=== PATIENT | male | born 1985 | race Hispanic/Latino ===

== ENCOUNTER 2019-01-07 23:31 | Emergency (ER) | payer SELFPAY ==
[2019-01-08] MEDS ORDERED: CEFAZOLIN SODIUM 1 GM/VIAL ONE (00:23)
[2019-01-08] MEDS ORDERED: NA CHLORIDE 0.9% 50 ML IV ONE (00:23)
[2019-01-08] MEDS ORDERED: TETANUS & DIPHTHERIA TOX,ADULT 0.5 ML VIAL ONE (00:23)
[2019-01-08] MEDS ORDERED: NA CHLORIDE 0.9% 1,000 ML ONE (00:23)
[2019-01-08] MEDS ORDERED: THIAMINE 200 MG/2 ML INJ ONE (00:23)
[2019-01-08 01:21] LABS: Absolute Lymphocytes (CBC) 2.5 K/uL (0.7-4.9); Basophils % 0.6 % (0-1.3); Eosinophils % 2.6 % (0-4.4); Hematocrit 41.8 % (39.6-49.0); MPV 9.9 fL (7.6-11.3); Monocytes % 6.7 % (3.3-12.3); RBC Red Blood Cell Count 4.41 M/uL (4.33-5.43)
[2019-01-08 01:28] LABS: ALT/SGPT 46 U/L (12-78); AST/SGOT 53 U/L (15-37); Albumin 3.8 g/dL (3.4-5.0); Alkaline Phosphatase 63 U/L (45-117); BUN Blood Urea Nitrogen 15 mg/dL (7-18); Bicarbonate 26 mmol/L (21-32); Bilirubin Direct < 0.1 mg/dL (0-0.2); Bilirubin Total 0.3 mg/dL (0.2-1.0); Glucose Level 91 mg/dL (74-106); Lipase 118 U/L (73-393); Potassium 3.8 mmol/L (3.5-5.1); Protein, Total 7.6 g/dL (6.4-8.2); Sodium Level 141 mmol/L (136-145)
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
--- NOTE | 2019-01-08 10:16 | RAD REPORT ---
EXAM DESCRIPTION: CT - Head C Spine Jermain Azul - 01/08/2019 1:37 am CLINICAL HISTORY: 33 years Male, Facial pain;Deformity COMPARISON: None. TECHNIQUE: Multiple, helical axial tomographic images were obtained of the head, cervical spine and facial bones without intravenous contrast. Subsequent axial images were obtained of the chest, abdome n, and pelvis following administration of intravenous contrast. Coronal and sagittal reformatted imag es were obtained. This exam was performed according to our departmental dose-optimization program, wh ich includes automated exposure control, adjustment of the mA and/or kV according to patient size and /or use of iterative reconstruction technique. FINDINGS: CT head: There are two adjacent small areas of mild increased density in the left thalamus and posterior limb of the left internal capsule which could be related to developmental venous anomaly, less likely acut e hemorrhage. There is a small amount of fat along the dorsal aspect of the body and splenium of the corpus callosum. 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 No mass. No midline shift. No ventriculomegaly. Marquez-whi te matter differentiation is maintained. Osseous structures are unremarkable. Small frontal scalp hematoma is present. CT cervical spine: No evidence for an acute fracture of the cervical spine. No subluxation. Nonspecific straightening of normal cervical lordosis is demonstrated. Vertebral body heights and disc spaces are maintained. Lizeth tral canal is grossly patent. Surrounding soft tissues are unremarkable. CT maxillofacial: There is a tiny lucency within the nasal bones near the tip questionable for an acute nondisplaced fr acture. No additional acute facial bone fracture identified. Moderate paranasal sinus mucosal thicken ing is demonstrated. Orbits and orbital contents are unremarkable. Mastoid air cells and middle ear s paces are clear. CT chest: Thyroid gland: unremarkable. Axilla: unremarkable. Pulmonary arteries: Central pulmonary arteries appear patent. Exam is not tailored to evaluate the pe ripheral pulmonary arteries. Aorta: No evidence of aortic dissection or aneurysm. Mediastinum: Unremarkable. No adenopathy. Heart: Heart is normal in size. Lungs/airways: No consolidation. Airways are patent. Mild dependent atelectasis is present. Pleural spaces: No significant pleural effusion. No pneumothorax. Osseous: Unremarkable. Soft tissues: Unremarkable. CT abdomen and pelvis: Liver: Homogenous attenuation is noted. Gallbladder/biliary: Appears unremarkable Pancreas: Unremarkable. No evidence of ductal enlargement. Spleen: Appears unremarkable. No splenomegaly. Adrenals: Unremarkable. Kidneys and ureters: No evidence of hydronephrosis. Normal enhancement. At least two subcentimeter hypodensities in the left kidney are present too small to characterize but likely representing cysts. Bladder: Unremarkable. Pelvic organs: Unremarkable. Bowel: No evidence of bowel obstruction. No bowel wall thickening. Appendix appears unremarkable. Vasculature: Unremarkable. Peritoneum: No free air. No significant free fluid. Lymph nodes: Unremarkable. Soft tissues: Unremarkable. Bones: Unremarkable. IMPRESSION: 1. Small focal areas of hyperdensity in the region of the left thalamus and posterior li mb of the left external capsule could be related to a developmental venous anomaly. Small focal areas of acute intraparenchymal hemorrhage are less favored given the density, however consider follow-up CT to ensure stability. Follow-up MRI can also be obtained as appropriate. 2. Intracranial pericallosal lipoma. 3. No evidence for an acute fracture of the cervical spine. 4. Questionable small nondisplaced acute fracture involving the nasal bones. 5. No evidence for an acute process within the chest, abdomen, or pelvis. Electronically signed by: Kris Powers MD 01/08/2019 1:27 AM CDT Due to temporary technical issues with the PACS/Fluency reporting system, reports are being signed by the in house radiologist as a courtesy to ensure prompt reporting. The interpreting radiologist is f ully responsible for the content of the report.
== END 2019-01-08 02:55 | disposition home or self-care (01) ==
LOC: ER 23:31
DX: S02.2XXA Fracture of nasal bones, initial encounter for closed fracture (principal); R04.0 Epistaxis; F10.129 Alcohol abuse with intoxication, unspecified; V89.2XXA Person injured in unspecified motor-vehicle accident, traffic, initial encounter; F17.210 Nicotine dependence, cigarettes, uncomplicated; Z23 Encounter for immunization
CPT/HCPCS: 36415; 70450; 70486; 71260; 72125; 74177; 76377; 80048; 80076; 83690; 85025; 86850; 86900; 86901; 90471; 90714; 96361; 96365; 96375; 99285; J0690; J3411; J7030; Q9967